=== PATIENT | male | born 1940 | race Caucasian/White ===

== ENCOUNTER 2025-07-06 09:03 | Emergency (ER) | payer OTHER, SELFPAY ==
[2025-07-06 09:06] VITALS: BP 175/88
[2025-07-06 09:19] VITALS: BMI 23.9
--- NOTE | 2025-07-06 09:29 | ED.GENMED ---
History of Present Illness
General
Chief Complaint: Breathing Problem
Source: patient and family
Exam Limitations: none
Time Seen by Provider: 07/06/25 09:13
Nursing documentation reviewed up to this point in time: agreed with
History of Present Illness
History of Present Illness:
Patient is an 85-year-old male with history of CAD s/p cardiac stents, COPD who presents to the emergency department with 2 weeks of progressively worsening shortness of breath. Patient reports feeling increasingly short of breath over the past 2
weeks most notable with exertional activities and states he has to sit down after taking even 'a dozen steps'. More recently, over the past few days he has been waking up in the middle of the night due to feeling short of breath. He is
experiencing significant wheezing.
Patient denies any chest pain, either pleuritic or exertional in nature. He denies any lightheadedness, dizziness, diaphoresis. Patient denies any fever, chills, or productive cough. No lower leg swelling or pain.
Of note�patient does have a history of COPD and uses inhalers at home however these have not been improving his symptoms over the past few weeks.
Patient a relatively poor historian however it appears that he has a history of CAD with multiple cardiac stents.
Past History
Past History
ED Past Medical History: CAD, COPD and Hypercholesterolemia
ED Past Surgical History: Cardiac (Stents 2006)
Social History
Tobacco: Former smoker
Alcohol: None
Personal:
Living: alone
Family History
Family History: Other (reviewed and noncontributory)
Review of Systems
Review of Systems
Allergies reviewed?: Yes
All Other Systems: ROS reviewed and negative except as documented in HPI and ROS
Phy Exam
Physical Exam
Physical Exam:
Vitals: Hypertensive, otherwise vital signs stable. Afebrile
General: Patient is in no apparent distress
Skin: Warm and dry, no rashes or lesions
Head: Normocephalic, atraumatic
Eyes: Sclera nonicteric.
Throat: Protecting airway
Neck: Normal ROM, no cervical spine tenderness, no meningismus. No JVD.
Cardiac: Regular rate and rhythm, no murmurs.
Pulm: Normal respiratory effort. Decreased breath sounds bilaterally with prolonged expiratory phase and wheeze. No rales.
Abdomen: Abdomen soft and nontender.
Extremities: No evidence of cyanosis or edema. 2+ palpable DP pulses bilaterally
Neuro: AAOx3. Grossly intact
Psychiatric: Normal affect.
Scores
Heart Failure Risk
Heart Failure Risk Score: Not Applicable
Course
Orders/Labs/Results
Orders:
Orders
07/06/25 09:11
Electrocardiogram (*1) Urgent
Reason for Study: Shortness of Breath
EKG- Treatment ONCE
07/06/25 09:27
Complete Blood Count/With Diff Urgent
Comprehensive Metabolic Panel Urgent
NT-proBNP Urgent
Troponin I Urgent
07/06/25 09:39
Ipratropium/Albuterol Sulfate [Duoneb] 3 ml INH R NOW STA
CR Chest - 2 Views Urgent
Comment:
Reason For Exam: exertional SOB, wheezing
07/06/25 12:29
Troponin I Urgent
07/06/25 12:30
Electrocardiogram (*1) Urgent
Reason for Study: Shortness of Breath
EKG- Treatment ONCE
07/06/25 13:33
Prednisone [Deltasone] 40 mg PO NOW STA
Abnormal Lab Results
07/06/25
09:27
MCHC 32.3 L g/dL
(33.0-37.0)
Lymphocytes % 14.9 L %
(20.5-51.1)
Glucose 130 H mg/dl
(70-99)
07/06/25 09:27
07/06/25 09:27
Vital Signs
Initial and Last Documented VS:
Initial Vital Signs
Temp Pulse Resp BP Pulse Ox
98.2 F 58 20 175/88 94
07/06/25 09:06 07/06/25 09:06 07/06/25 09:06 07/06/25 09:06 07/06/25 09:06
Last Documented Vital Signs
Temp Pulse Resp BP Pulse Ox
98.2 F 73 16 130/100 95
07/06/25 09:06 07/06/25 13:00 07/06/25 13:00 07/06/25 12:00 07/06/25 13:00
MDM/Problems Addressed
Differential Diagnosis Includes:
Not limited to: Acute COPD exacerbation, acute coronary syndrome, congestive heart failure, pneumonia, symptomatic anemia, cardiac arrhythmia, etc.
MDM/Problems Addressed:
85-year-old male with 2 weeks of shortness of breath and wheezing. No exertional chest pain. No fevers or productive cough. He does have history of COPD however inhalers have not been improving symptoms recently. Vitals and exam as above.
Patient in no apparent distress. Heart regular rate and rhythm. There are decreased breath sounds bilaterally with expiratory wheeze in multiple lung love. No evidence of lower extremity swelling. Differential broad. Suspect COPD exacerbation
however given age and history�also consider acute coronary syndrome, CHF, etc. Will check labs, chest x-ray, serial troponins, proBNP. Will give DuoNeb and reassess.
Update 11:16 AM: Patient has had nearly complete resolution of symptoms following DuoNeb. On long reassessment�he has at this point only very subtle decreased breath sounds however lungs clear without wheeze. Labs without any clinically
significant abnormalities. Serial troponins negative x 2 without any acute ischemic findings on EKG. proBNP of 629�not indicative of heart failure. Do not suspect pulmonary embolism. Given findings on exam as well as resolution of symptoms
following breathing treatment�consistent with COPD exacerbation. He has remained stable with normal vital signs, not hypoxic. Feel patient is stable for discharge home with primary care follow-up. Advised cardiology follow-up, as well. Will send
prescription for nebulizer and albuterol solution as well as steroid course. Very strict return precautions discussed with both patient and patient's family who are comfortable with plan.
Chronic conditions affecting care:
COPD, CAD
Acute Exacerbation and/or Progression of Chronic Illness:
Acute COPD exacerbation
*Radiology
Radiology exam reviewed: radiology read reviewed
*Pulse Oximetry
SaO2: 94
Oxygen Mode of Delivery: Room air
Patient hypoxic: no
*EKG
Interpreted by ED Provider?: Yes
EKG Intrepretation Date: 07/06/25
Interpretation: abnormal
Comparison EKG: no changes
Heart Rate: 68
Rate: normal
Rhythm: sinus and PVC's
[place]: normal axis
Interval: normal QT interval
Ischemia: non-specific ST changes
*Bulk Station Agent Interpretation
Rate: normal
Interpretation: abnormal
Heart Rate: 72
Rhythm: sinus
*Critical Care Note
Total Time (30-74mins, 75-104mins- exclusive of procedures): Not Applicable
ED Attending Note
-
Portions of this chart may have been created with voice recognition software.� Occasional wrong word or��sound alike� substitutions may have occurred due to the inherent limitations of voice recognition software.
Discharge Plan
Departure
Patient Disposition: Home (Routine Discharge)
Patient with high blood pressure during this ER visit?: Yes
Discharge Problem:
Acute exacerbation of chronic obstructive pulmonary disease (COPD)
Instructions: COPD exacerbation in adults - ED discharge instructions, BLOOD PRESSURE
Prescriptions:
New
(DME) nebulizers Misc
See Rx Instructions .Route Qty: 1 0RF
Rx Instructions:
As directed
albuterol sulfate 2.5 mg /3 mL (0.083 %) solution for nebulization
2.5 mg inhalation Q4H PRN (Reason: shortness of breath or wheezing) Qty: 90 0RF
prednisone 20 mg tablet
40 mg PO DAILY 5 Days Qty: 10 0RF
No Action
rosuvastatin 40 MG tablet
40 mg PO QPM Qty: 30 0RF
albuterol sulfate 1 PUFF HFA aerosol inhaler
2 puff inhalation BID PRN (Reason: sob)
pantoprazole 40 MG tablet,delayed release (DR/EC)
40 mg PO BID Qty: 60 1RF
aspirin [Ecotrin Low Strength] 81 MG tablet,delayed release (DR/EC)
81 mg PO DAILY Qty: 30 0RF
Referrals:
Bharat Jaquez MD [Family Provider, Internal Medicine] - Follow up in 2-3 days
Scarlet Estrella MD [Active, Cardiology] - Next open appointment
Activity Restrictions/Additional Instructions:
RETURN TO THE EMERGENCY DEPARTMENT WITH ANY CHEST PAIN, SHORTNESS OF BREATH/DIFFICULTY BREATHING, PRODUCTIVE COUGH, FEVERS, WORSENING IN CURRENT SYMPTOMS, OR ANY OTHER CONCERNS
- As discussed�I suspect your symptoms are likely due to an exacerbation of your COPD. You received a breathing treatment in the emergency department with almost complete resolution of symptoms.
- A prescription for nebulizer and nebulizing solution has been sent to your pharmacy which you can use every 4 hours as needed for shortness of breath/wheezing. Continue to use your inhalers at home as directed
- You should take steroids for the next 5 days.
- Follow-up with your primary care provider for further evaluation to ensure symptoms are improving and for continued management of your COPD.
- Please also follow-up with cardiology. Contact information has been provided for you above.
Monitor your symptoms closely and return to the emergency department with any acute worsening/new symptoms or any other concerns
Interventions
Interventions:
*Risk Screen - Suicide Last Done: 07/06/25 09:08
*General Assessment Last Done: 07/06/25 10:06
*Neglect/Abuse Screening Last Done: 07/06/25 09:08
*Nursing Disposition Last Done: 07/06/25 13:49
ED- Cardiac Assessment Last Done: 07/06/25 09:25
ED- Pulmonary Assessment Last Done: 07/06/25 09:25
Discharge Date and Time
Discharge Date/Time: 07/06/25 13:49
Print Language: [id number]
[2025-07-06 09:40] LABS: Hematocrit 46.1 % (39.0-52.0); Hemoglobin 14.9 g/dL (13.0-18.0); Mean Corp Hgb Conc. 32.3 g/dL (33.0-37.0); Mean Corpuscular Volume 92.4 fL (80.0-94.0); Nucleated Red Blood Cells % 0 % (-); Platelet Count 182 10^3/uL (130-400); Red Cell Dist. Width 12.6 % (11.5-14.5)
[2025-07-06] MEDS: DUONEB 3 ML INH (09:42)
[2025-07-06 09:55] LABS: ALT (SGPT) 22 U/L (0-50); AST (SGOT) 21 U/L (17-59); Albumin 4.4 g/dl (3.5-5.0); Alkaline Phosphatase 75 U/L (38-126); Blood Urea Nitrogen 19 mg/dl (9-20); Calcium 9.4 mg/dl (8.4-10.2); Carbon Dioxide 29 mmol/L (22-30); Chloride 107 mmol/L (98-107); Estimated Creatinine Clearance 64 ml/min; Glucose 130 mg/dl (70-99); Potassium 4.2 mmol/L (3.5-5.1); Sodium 141 mmol/L (135-145); Total Protein 6.5 g/dl (6.3-8.2); eGFR > 60.00
[2025-07-06 10:06] LABS: Troponin I < 0.012 ng/ml
[2025-07-06 10:44] VITALS: BP 128/104
[2025-07-06 11:00] VITALS: BP 145/97
[2025-07-06 12:00] VITALS: BP 130/100
[2025-07-06 13:10] LABS: Troponin I < 0.012 ng/ml
[2025-07-06] MEDS: DELTASONE 40 MG PO (13:39)
== END 2025-07-06 13:49 | disposition home or self-care (01) ==
LOC: EMR 09:03
PROVIDERS: Physician Assistant; EMERGENCY PHYSICIAN Emergency Medicine; FAMILY PHYSICIAN Internal Medicine
DX: J44.1 Chronic obstructive pulmonary disease with (acute) exacerbation (principal); I49.3 Ventricular premature depolarization; R03.0 Elevated blood-pressure reading, without diagnosis of hypertension; I25.10 Atherosclerotic heart disease of native coronary artery without angina pectoris; E78.00 Pure hypercholesterolemia, unspecified; Z79.82 Long term (current) use of aspirin; Z87.891 Personal history of nicotine dependence; Z95.5 Presence of coronary angioplasty implant and graft
CPT/HCPCS: 99284; 94640; 71046; 80053; 83880; 84484; 85025; 93005